=== PATIENT | female | born 1955 | race Caucasian/White ===

== ENCOUNTER 2019-11-27 08:25 | Emergency (ER) | payer MEDICAID, MEDICARE ==
[~2019-11-27 08:25] MED LIST: Sodium Chloride 0.9% 1,000 ML BAG ONE
[2019-11-27 08:54] LABS: Bilirubin Negative (Negative); Blood, Urine Negative (Negative); Clarity Clear (Clear); Glucose, Urine (Dipstick) Negative (Negative); Leukocyte Negative (Negative); Nitrite Negative (Negative); Protein, Urine (Dipstick) Negative (Neg-Trace); Urobilinogen 0.2 mg/dL (Less than 2)
[2019-11-27 08:55] LABS: #Basophils 0.1 thou/uL (0.0-0.2); #Eosinphils 0.2 thou/uL (0.0-0.7); #Lymphocytes 2.5 thou/uL (1.20-3.40); #Monocytes 0.6 thou/uL (0.11-0.59); #Neutrophils 6.4 thou/uL (1.40-6.50); %Basophils 1.1 % (0.0-1.0); %Lymphocytes 25.7 % (21.0-51.0); %Neutrophils 65.2 % (42.0-75.0); Hemoglobin 17.2 g/dL (12.0-16.0); Mean Corpuscular HGB CONC 31.7 g/dL (32.0-36.0); Mean Corpuscular Hemoglobin 28.4 pg (27.0-31.0); Mean Corpuscular Volume 89.5 fL (78.0-98.0); Mean Platelet Volume 7.4 fL (7.4-10.4); Platelet Count 217 thou/uL (130-400); RBC Distribution Width 14.3 % (11.5-14.5); Red Blood Cell (RBC) Count 6.04 mill/uL (4.20-5.40); White Blood Cell (WBC) Count 9.7 thou/uL (4.8-10.8)
[2019-11-27] MEDS ORDERED: Metoclopramide HCl 10 MG/2 ML VIAL ONE (08:58)
[2019-11-27 09:05] LABS: ALT (SGPT) 14 U/L (8-55); AST (SGOT) 15 U/L (5-34); Albumin 4.1 g/dL (3.4-4.8); Alkaline Phosphatase 115 U/L (40-110); Anion Gap 14 mmol/L (10-20); BUN (Urea Nitrogen) 11 mg/dL (9.8-20.1); Bilirubin, Total 0.4 mg/dL (0.2-1.2); Calc. Creatinine Clearance 0 mL/min (70-130); Calcium 8.6 mg/dL (7.8-10.44); Carbon Dioxide 30 mmol/L (23-31); Chloride 101 mmol/L (98-107); Estimated GFR-MDRD 68; Globulin 2.7 g/dL (2.4-3.5); Glucose 105 mg/dL (80-115); Potassium 4.4 mmol/L (3.5-5.1); Protein, Total 6.8 g/dL (6.0-8.3); Sodium 141 mmol/L (136-145)
[2019-11-27 09:06] LABS: CK (CPK) 74 U/L (29-168); Lipase 10 U/L (8-78)
--- NOTE | 2019-11-27 09:10 | CT ---
Exam: Head CT without contrast HISTORY: Headache COMPARISON: none FINDINGS: Hemorrhage: No intraparenchymal hemorrhage or extra-axial hematoma. Brain parenchyma: Cortical bianchi-white matter differentiation is preserved. No mass effect or midline shift. Basilar cisterns are patent. Ventricular system: Ventricles and sulci are patent and symmetric. Calvarium: Intact. Sinuses and mastoid air cells: Adequate aeration. IMPRESSION: No acute intracranial process.
--- NOTE | 2019-11-27 09:21 | RAD ---
PORTABLE CHEST 1 VIEW: Date: 11/27/2019 Time: 0918 hours HISTORY: Hypoxemia. COMPARISON: 10/27/2014. FINDINGS: The heart size is normal. The lungs are well expanded without lobar consolidation, pneumothoraces, fr ank pulmonary edema, or pleural effusions. Bilateral calcified breast implants are again seen. IMPRESSION: No acute process. POS: [facility]
[2019-11-27] MEDS ORDERED: Iopamidol 370 76% 125 ML VIAL FS ONE (10:35)
--- NOTE | 2019-11-27 10:53 | CT ---
CT ANGIOGRAM THORAX WITH IV CONTRAST AND 3-D RECONSTRUCTIONS CLINICAL INDICATION: Elevated d-dimer and hypoxemia. COMPARISON: None FINDINGS: Pulmonary arteries: No filling defects are seen within the central or segmental pulmonary arteries to suggest a pulmonary embolus. There is suggestion of a filling defect within a right lower lobe segmental pulmonary artery, but this is most likely artifactual. There is limited evaluation of the s ubsegmental arteries at each lung base related to mild motion at the lung bases. Aorta: Minimal vascular calcifications are seen. The thoracic aorta is normal in caliber without evid ence of an aortic dissection. The most proximal aspects of the common carotid arteries bilaterally demonstrate prominent medial deviation. Lungs: Bibasilar linear parenchymal densities are seen likely attributable to atelectasis. There is a pleural-based 5 mm nodular density seen in the anterior right upper lobe. No additional discrete pulmonary nodule or mass is seen. No pleural effusion is identified. Mediastinum: Small amount of fluid is seen in the distal esophagus which could be related to gastroes ophageal reflux. No enlarged mediastinal lymph nodes are seen. Thyroid gland: Normal in appearance where visualized. Osseous structures: Mild degenerative changes are seen in the spine. There is mild right glenohumeral osteoarthropathy present. No suspicious lytic or sclerotic osseous lesions are identified. Chest wall: Peripherally calcified bilateral breast prostheses are identified. Upper abdomen: Postcholecystectomy changes are seen. Remainder of the upper abdomen demonstrates a no rmal CT appearance for phase of imaging. IMPRESSION: 1. No CT evidence of a pulmonary embolus involving the central or segmental pulmonary arteries. There is suboptimal evaluation of the subsegmental pulmonary arteries primarily at each lung base. 2. Pleural-based right upper lobe nodular density measuring 5 mm.
[2019-11-27] MEDS ORDERED: Sodium Chloride 0.9% 100 ML BAG ONE (11:00)
== END 2019-11-27 11:17 | disposition short-term general hospital (02) ==
LOC: MADERS 08:25
DX: R51 Headache (principal); I10 Essential (primary) hypertension; R07.9 Chest pain, unspecified; R09.02 Hypoxemia; K21.9 Gastro-esophageal reflux disease without esophagitis; F32.9 Major depressive disorder, single episode, unspecified; F17.210 Nicotine dependence, cigarettes, uncomplicated; M86.9 Osteomyelitis, unspecified; Z79.891 Long term (current) use of opiate analgesic
CPT/HCPCS: 70450; 71045; 71275; 80053; 81003; 82550; 83690; 84484; 85025; 85379; 93005; 94760; 96361; 96374; J2765; J3490; J7050; Q9967

== ENCOUNTER 2019-12-14 13:01 | Emergency (ER) | payer MEDICARE ==
[~2019-12-14 13:01] MED LIST changes: +Iopamidol 370 76% 125 ML VIAL FS ONE; -Sodium Chloride 0.9% 1,000 ML BAG ONE; +Sodium Chloride 0.9% 100 ML BAG ONE
--- NOTE | 2019-12-14 13:59 | RAD ---
PORTABLE CHEST ONE VIEW: 12/14/19 at 1:26 p.m. HISTORY: Chest pain, weakness. COMPARISON: 11/27/19. FINDINGS/IMPRESSION: The heart size is borderline. Bilateral breast implants are again seen. There is mild pulmonary vascu lar congestion. There is question of a patchy opacity in the left mid lung which was not seen on the previous exam. No pneumothoraces or large effusions are seen. POS: [facility]
[2019-12-14 14:12] LABS: ALT (SGPT) 13 U/L (8-55); AST (SGOT) 14 U/L (5-34); Albumin 3.7 g/dL (3.4-4.8); Alkaline Phosphatase 100 U/L (40-110); Anion Gap 15 mmol/L (10-20); BUN (Urea Nitrogen) 9 mg/dL (9.8-20.1); Bilirubin, Total 0.7 mg/dL (0.2-1.2); Calc. Creatinine Clearance 0 mL/min (70-130); Calcium 8.7 mg/dL (7.8-10.44); Carbon Dioxide 29 mmol/L (23-31); Chloride 99 mmol/L (98-107); Estimated GFR-MDRD 82; Glucose 125 mg/dL (80-115); Potassium 3.8 mmol/L (3.5-5.1); Protein, Total 6.7 g/dL (6.0-8.3); Sodium 139 mmol/L (136-145)
[2019-12-14 14:14] LABS: Band 1 % (5-11); Eosinophils 2 % (0-10); Hemoglobin 15.8 g/dL (12.0-16.0); Lymphocytes 6 % (21-51); MDiff Complete? YES; Mean Corpuscular HGB CONC 30.1 g/dL (32.0-36.0); Mean Corpuscular Hemoglobin 27.3 pg (27.0-31.0); Mean Corpuscular Volume 90.5 fL (78.0-98.0); Mean Platelet Volume 8.2 fL (7.4-10.4); Monocytes 4 % (0-10); Myelocyte 1 % (0-0); Neutrophil 80 % (42-75); Platelet Count 215 thou/uL (130-400); Platelet Morphology Comment Appears Adequate; RBC Distribution Width 14.6 % (11.5-14.5); RBC Morphology Normal; Reactive Lymphocytes 6 % (0-10); White Blood Cell (WBC) Count 14.8 thou/uL (4.8-10.8)
[2019-12-14 14:15] LABS: Bicarbonate (HCO3v) 34.1 mmol/L (22.0-28.0); CO2 Tension (PvCO2) 59.5 mmHg (40.0-50.0); Calcium, Ionized 1.01 mmol/L (See Comments:); Chloride 102 mmol/L (98-107); Hemoglobin - Calc 19.2 g/dL (12.0-16.0); Potassium 3.7 mmol/L (3.5-5.1); Sodium 141 mmol/L (138-145); T. Carbon Dioxide 35.9 mmol/L (22.0-28.0); vO2 Saturation-calc 99.8 % (60.0-85.0)
--- NOTE | 2019-12-14 15:25 | CT ---
CT ANGIOGRAM THORAX WITH IV CONTRAST AND 3-D RECONSTRUCTIONS CLINICAL INDICATION: Dyspnea COMPARISON: 11/27/2019 FINDINGS: Pulmonary arteries: No filling defects are seen in the pulmonary arteries to suggest a pulmonary embo vianney. Aorta: The aorta is normal in caliber without evidence of an aortic dissection. Lungs: Interval development of a masslike area of consolidation in the left upper lobe which is favor ed to represent pneumonia given short interval development when compared to prior exam. Subtle lower attenuation area is seen within the area of consolidation, and necrotizing pneumonia cannot be excluded. Neoplastic process is a differential consideration, and given short interval change compared to prior exam, pneumonia is felt more likely. Correlation for clinical symptoms of pneumonia is recommended, and follow-up to resolution is also recommended. Dependent atelectasis is seen bilaterally. Mediastinum: Enlarged prevascular space lymph node measuring 1.1 cm in short axis dimension with few mildly prominent left hilar lymph nodes which are likely reactive in origin. Thyroid gland: Grossly within normal limits. Osseous structures: Degenerative changes are seen in the spine. Chest wall: Partially calcified bilateral breast prostheses are again seen. Upper abdomen: Diminished attenuation liver suggesting fatty infiltration. Subcentimeter too small to characterize hypodense lesion seen in the most anterior aspect of the medial segment left hepatic lobe. Postcholecystectomy changes are noted. IMPRESSION: 1. Masslike consolidation left upper lobe which is thought to most likely be attributable to pneumoni a given short interval change as opposed to neoplastic process, but continued follow-up is recommended to ensure complete resolution and exclude possibility of an underlying neoplastic process . There is suggestion of subtle low density area within this area of consolidation, and necrotizing pneumonia is a possibility. 2. Mediastinal and left hilar lymphadenopathy likely reactive in origin. 3. Fatty infiltration of the liver. 4. Postcholecystectomy changes. 5. No CT evidence of a pulmonary embolus.
[2019-12-14] MEDS ORDERED: Sodium Chloride 0.9% 1,000 ML ONE (15:42)
[2019-12-14] MEDS ORDERED: Cefepime 2 GM VIAL ONE (15:42)
[2019-12-14] MEDS ORDERED: Sodium Chloride 0.9% 100 ML ONE (15:43)
== END 2019-12-14 16:57 | disposition short-term general hospital (02) ==
LOC: MADERS 13:01
DX: J18.9 Pneumonia, unspecified organism (principal); K21.9 Gastro-esophageal reflux disease without esophagitis; F32.9 Major depressive disorder, single episode, unspecified; Z79.899 Other long term (current) drug therapy
CPT/HCPCS: 36415; 71045; 71275; 80053; 82330; 82435; 82803; 83605; 83880; 84132; 84295; 84484; 85014; 85025; 87040; 93005; 96365; 96375; J0692; J1956; J3490; J7050; Q9967

== ENCOUNTER 2020-01-15 12:39 | Outpatient (CLI) | payer MEDICARE ==
--- NOTE | 2020-01-15 14:11 | RAD ---
CERVICAL SPINE FOUR VIEWS: 01/15/20 HISTORY: Neck pain and paresthesias, no trauma. FINDINGS: There is loss of the cervical lordosis with straightening of the cervical spine. Multilevel degenerat yenni changes are seen mainly in the lower cervical spine. No fracture, subluxation or bony destruction identified. IMPRESSION: Cervical spondylosis. POS: [facility]
--- NOTE | 2020-01-15 14:13 | RAD ---
EXAM: LUMBAR SPINE THREE VIEWS: 01/15/20 HISTORY: Paresthesia, no trauma. FINDINGS: transitional vertebra at the lumbosacral level. There is evidence for some anterolisthesis of L5 on S 1 as well as anterolisthesis of L4 on L5 with severe disc space narrowing. Generalized spondylosis. IMPRESSION: Transitional vertebra at the lumbosacral level. Evidence for grade I anterolisthesis of L4 on L5 and L5 on S1. Consider follow-up standing, flexion and extension views for further assessment. POS: [facility]
== END 2020-01-15 12:40 | disposition home or self-care (01) ==
LOC: MADRAD 12:39
PROVIDERS: ATTEND Family Medicine
DX: R20.2 Paresthesia of skin (principal); M43.16 Spondylolisthesis, lumbar region; M43.17 Spondylolisthesis, lumbosacral region; M47.812 Spondylosis without myelopathy or radiculopathy, cervical region
CPT/HCPCS: 72040; 72100

== ENCOUNTER 2020-01-20 20:27 | Emergency (ER) | payer MEDICARE ==
[~2020-01-20 20:27] MED LIST changes: -Iopamidol 370 76% 125 ML VIAL FS ONE; +Sodium Chloride 0.9% 1,000 ML BAG ONE; -Sodium Chloride 0.9% 100 ML BAG ONE
[2020-01-20 21:36] LABS: #Basophils 0.1 thou/uL (0.0-0.2); #Eosinphils 0.1 thou/uL (0.0-0.7); #Lymphocytes 2.6 thou/uL (1.20-3.40); #Monocytes 0.6 thou/uL (0.11-0.59); #Neutrophils 6.2 thou/uL (1.40-6.50); %Basophils 1.1 % (0.0-1.0); %Eosinophils 1.2 % (0.0-10.0); %Lymphocytes 26.8 % (21.0-51.0); %Neutrophils 64.9 % (42.0-75.0); Hemoglobin 17.1 g/dL (12.0-16.0); Mean Corpuscular HGB CONC 30.8 g/dL (32.0-36.0); Mean Corpuscular Hemoglobin 27.2 pg (27.0-31.0); Mean Platelet Volume 7.8 fL (7.4-10.4); Platelet Count 245 thou/uL (130-400); RBC Distribution Width 13.9 % (11.5-14.5); Red Blood Cell (RBC) Count 6.28 mill/uL (4.20-5.40); White Blood Cell (WBC) Count 9.5 thou/uL (4.8-10.8)
[2020-01-20 21:43] LABS: Bilirubin Negative (Negative); Blood, Urine Negative (Negative); Glucose, Urine (Dipstick) Negative (Negative); Leukocyte Negative (Negative); Nitrite Negative (Negative); Protein, Urine (Dipstick) Negative (Neg-Trace); Urobilinogen 0.2 mg/dL (Less than 2)
[2020-01-20 21:54] LABS: ALT (SGPT) 18 U/L (8-55); AST (SGOT) 17 U/L (5-34); Albumin 4.5 g/dL (3.4-4.8); Alkaline Phosphatase 97 U/L (40-110); Anion Gap 17 mmol/L (10-20); BUN (Urea Nitrogen) 8 mg/dL (9.8-20.1); Bilirubin, Total 0.8 mg/dL (0.2-1.2); Calc. Creatinine Clearance 0 mL/min (70-130); Calcium 9.4 mg/dL (7.8-10.44); Carbon Dioxide 23 mmol/L (23-31); Chloride 101 mmol/L (98-107); Estimated GFR-MDRD 63; Globulin 2.7 g/dL (2.4-3.5); Glucose 104 mg/dL (80-115); Potassium 4.1 mmol/L (3.5-5.1); Protein, Total 7.2 g/dL (6.0-8.3); Sodium 137 mmol/L (136-145)
[2020-01-20] MEDS ORDERED: Sodium Chloride 0.9% 100 ML ONE (22:06)
[2020-01-20] MEDS ORDERED: Phenazopyridine HCl 97.5 MG TABLET ONE (22:06)
[2020-01-20] MEDS ORDERED: cefTRIAXone\\ROCEPHIN 2 GM VIAL ONE (22:06)
[2020-01-20 22:08] LABS: Clarity Slightly Cloudy (Clear)
[2020-01-20] MEDS ORDERED: Fluconazole 100 MG TAB ONE (22:18)
[2020-01-20] MEDS ORDERED: Ondansetron PF 4 MG/2 ML Vial ONE (22:31)
== END 2020-01-20 22:45 | disposition home or self-care (01) ==
LOC: MADERS 20:27
DX: B37.41 Candidal cystitis and urethritis (principal); F41.9 Anxiety disorder, unspecified; F43.0 Acute stress reaction; K21.9 Gastro-esophageal reflux disease without esophagitis; F32.9 Major depressive disorder, single episode, unspecified; M86.9 Osteomyelitis, unspecified; F17.210 Nicotine dependence, cigarettes, uncomplicated; Z79.891 Long term (current) use of opiate analgesic; Z79.899 Other long term (current) drug therapy
CPT/HCPCS: 80053; 81003; 85025; 87086; 96361; 96365; J0696; J2405; J3490; J7050

== ENCOUNTER 2020-02-13 09:17 | Emergency (ER) | payer MEDICARE ==
[2020-02-13] MEDS ORDERED: Promethazine 25 MG TAB ONE (10:13)
[2020-02-13 10:15] LABS: Bilirubin Negative (Negative); Blood, Urine Trace (Negative); Clarity Slightly Cloudy (Clear); Glucose, Urine (Dipstick) Negative (Negative); Ketone, Urine Negative (Negative); Leukocyte Negative (Negative); Nitrite Negative (Negative); Protein, Urine (Dipstick) Trace mg/dL (Neg-Trace); pH, Urine 5.5 (5.0-9.0)
[2020-02-13 10:18] LABS: Bacteria/HPF Rare-Few HPF (None Seen); RBC/HPF 0-3 HPF (0-3); WBC/HPF 0-3 HPF (0-3)
[2020-02-13 10:24] LABS: #Basophils 0.1 thou/uL (0.0-0.2); #Eosinphils 0.1 thou/uL (0.0-0.7); #Lymphocytes 2.3 thou/uL (1.20-3.40); #Monocytes 0.8 thou/uL (0.11-0.59); #Neutrophils 9.3 thou/uL (1.40-6.50); %Basophils 0.9 % (0.0-1.0); %Lymphocytes 18.3 % (21.0-51.0); %Monocytes 6.4 % (0.0-10.0); %Neutrophils 73.4 % (42.0-75.0); Hemoglobin 17.6 g/dL (12.0-16.0); Mean Corpuscular HGB CONC 32.4 g/dL (32.0-36.0); Mean Corpuscular Hemoglobin 28.3 pg (27.0-31.0); Mean Corpuscular Volume 87.5 fL (78.0-98.0); Mean Platelet Volume 8.8 fL (7.4-10.4); Platelet Count 242 thou/uL (130-400); RBC Distribution Width 12.5 % (11.5-14.5); Red Blood Cell (RBC) Count 6.21 mill/uL (4.20-5.40); White Blood Cell (WBC) Count 12.7 thou/uL (4.8-10.8)
[2020-02-13 10:42] LABS: ALT (SGPT) 32 U/L (8-55); AST (SGOT) 20 U/L (5-34); Albumin 4.5 g/dL (3.4-4.8); Alkaline Phosphatase 108 U/L (40-110); Anion Gap 17 mmol/L (10-20); BUN (Urea Nitrogen) 18 mg/dL (9.8-20.1); Bilirubin, Total 0.6 mg/dL (0.2-1.2); Calc. Creatinine Clearance 0 mL/min (70-130); Calcium 9.5 mg/dL (7.8-10.44); Carbon Dioxide 23 mmol/L (23-31); Chloride 101 mmol/L (98-107); Estimated GFR-MDRD 66; Globulin 2.9 g/dL (2.4-3.5); Glucose 119 mg/dL (80-115); Potassium 4.2 mmol/L (3.5-5.1); Protein, Total 7.4 g/dL (6.0-8.3); Sodium 137 mmol/L (136-145)
--- NOTE | 2020-02-13 10:57 | RAD ---
Exam: Chest one view HISTORY:Weakness Comparison: 12/14/2019 FINDINGS: Cardiac silhouette: Normal Aorta: Minimal atherosclerosis, unchanged Pulmonary vessels: Normal Costophrenic angles: Clear LUNGS: Chronic lung parenchymal changes, without mass or consolidation. Pneumothorax: None Osseous abnormalities: No acute abnormality. IMPRESSION: No acute cardiopulmonary process.
== END 2020-02-13 11:20 | disposition home or self-care (01) ==
LOC: MADERS 09:17
DX: R53.1 Weakness (principal); R25.1 Tremor, unspecified; R11.0 Nausea; K21.9 Gastro-esophageal reflux disease without esophagitis; F32.9 Major depressive disorder, single episode, unspecified; F17.210 Nicotine dependence, cigarettes, uncomplicated; Z89.422 Acquired absence of other left toe(s); Z89.421 Acquired absence of other right toe(s); Z79.899 Other long term (current) drug therapy
CPT/HCPCS: 36415; 71045; 80053; 81003; 81015; 83880; 84484; 85025; 93005; Q0169

== ENCOUNTER 2020-04-07 18:58 | Emergency (ER) | payer MEDICARE, OTHER ==
[2020-04-07 19:20] LABS: Bilirubin Negative (Negative); Blood, Urine Negative (Negative); Glucose, Urine (Dipstick) Negative (Negative); Ketone, Urine Negative (Negative); Leukocyte Negative (Negative); Nitrite Negative (Negative); Protein, Urine (Dipstick) Negative (Neg-Trace); Specific Gravity, Urine 1.025 (1.005-1.030); Urobilinogen 0.2 mg/dL (Less than 2); pH, Urine 6.5 (5.0-9.0)
[2020-04-07 19:22] LABS: Clarity Hazy (Clear)
[2020-04-07] MEDS ORDERED: Nitrofurantoin Monohyd/M-Cryst 100 MG CAP ONE (19:41)
[2020-04-07] MEDS ORDERED: predniSONE 20 MG TAB ONE (19:44)
== END 2020-04-07 19:52 | disposition home or self-care (01) ==
LOC: MADERS 18:58
DX: N30.00 Acute cystitis without hematuria (principal); K21.9 Gastro-esophageal reflux disease without esophagitis; M86.9 Osteomyelitis, unspecified; F32.9 Major depressive disorder, single episode, unspecified; F17.210 Nicotine dependence, cigarettes, uncomplicated
CPT/HCPCS: 81003; 99284; J7512

== ENCOUNTER 2020-11-28 10:26 | Emergency (ER) | payer MEDICARE ==
[2020-11-28] MEDS ORDERED: Lorazepam 2 MG/ML VIAL ONE (11:42)
[2020-11-28 11:44] LABS: #Basophils 0.1 thou/uL (0.0-0.2); #Eosinphils 0.1 thou/uL (0.0-0.7); #Lymphocytes 2.5 thou/uL (1.20-3.40); #Monocytes 0.6 thou/uL (0.11-0.59); #Neutrophils 7.4 thou/uL (1.40-6.50); %Lymphocytes 23.8 % (21.0-51.0); %Monocytes 5.2 % (0.0-10.0); %Neutrophils 69.1 % (42.0-75.0); Hemoglobin 15.5 g/dL (12.0-16.0); Mean Corpuscular HGB CONC 31.8 g/dL (32.0-36.0); Mean Corpuscular Hemoglobin 29.5 pg (27.0-31.0); Mean Corpuscular Volume 92.9 fL (78.0-98.0); Mean Platelet Volume 9.4 fL (7.4-10.4); Platelet Count 279 thou/uL (130-400); RBC Distribution Width 13.2 % (11.5-14.5); Red Blood Cell (RBC) Count 5.23 mill/uL (4.20-5.40); White Blood Cell (WBC) Count 10.7 thou/uL (4.8-10.8)
[2020-11-28 12:07] LABS: ALT (SGPT) 16 U/L (8-55); AST (SGOT) 15 U/L (5-34); Acetaminophen Less than 6.0 mcg/mL (10.0-30.0); Albumin 4.3 g/dL (3.4-4.8); Alcohol Less than 10 mg/dL (Less than 10); Alkaline Phosphatase 107 U/L (40-110); Anion Gap 17 mmol/L (10-20); BUN (Urea Nitrogen) 16 mg/dL (9.8-20.1); Bilirubin, Total 0.6 mg/dL (0.2-1.2); CK (CPK) 60 U/L (29-168); Calc. Creatinine Clearance 0 mL/min (70-130); Carbon Dioxide 22 mmol/L (23-31); Chloride 105 mmol/L (98-107); Globulin 2.6 g/dL (2.4-3.5); Glucose 91 mg/dL (80-115); Potassium 4.1 mmol/L (3.5-5.1); Protein, Total 6.9 g/dL (5.8-8.1); Salicylate Less than 8.0 mg/dL (15.0-30.0); Sodium 140 mmol/L (136-145)
[2020-11-28 12:42] LABS: Bilirubin Negative (Negative); Blood, Urine Negative (Negative); Clarity Clear (Clear); Glucose, Urine (Dipstick) Negative (Negative); Ketone, Urine Negative (Negative); Leukocyte Negative (Negative); Nitrite Negative (Negative); Protein, Urine (Dipstick) Negative (Neg-Trace); Specific Gravity, Urine 1.015 (1.005-1.030); Urobilinogen 0.2 mg/dL (Less than 2); pH, Urine 5.5 (5.0-9.0)
[2020-11-28 17:16] LABS: Amphetamine Not Detected (NotDetected); Barbiturates Screen Not Detected (NotDetected); Benzodiazepine Screen Detected (NotDetected); Cocaine Metabolite Screen Not Detected (NotDetected); Medtox Control Line Valid? VALID (VALID); Methadone Not Detected (NotDetected); Methamphetamine Not Detected (NotDetected); Opiate Screen Not Detected (NotDetected); Oxycodone Screen Not Detected (NotDetected); Phencyclidine (PCP) Not Detected (NotDetected); THC/Cannabinoid Screen Not Detected (NotDetected); Tricyclic Screen Not Detected (NotDetected)
== END 2020-11-28 15:50 | disposition short-term general hospital (02) ==
LOC: MADERS 10:26
DX: R25.1 Tremor, unspecified (principal); L98.9 Disorder of the skin and subcutaneous tissue, unspecified; K21.9 Gastro-esophageal reflux disease without esophagitis; F17.210 Nicotine dependence, cigarettes, uncomplicated
CPT/HCPCS: 36415; 70450; 80053; 80306; 80307; 81003; 82550; 85025; 96374; J2060